=== PATIENT | male | born 1990 | race Two or more races ===

== ENCOUNTER 2018-05-28 22:34 | Emergency (ER) | payer SELFPAY ==
[~2018-05-28] VITALS: Ht 160 cm; Wt 71.2 kg
[2018-05-28] MEDS ORDERED: ACETAMINOPHEN ES 500 MG TABLET ONE (23:28)
[2018-05-28] MEDS ORDERED: ACETAMINOPHEN 325 MG TABLET PO ONE (23:30)
[2018-05-28 23:40] VITALS: BP 138/77
== END 2018-05-29 00:51 | disposition home or self-care (01) ==
LOC: ER 22:42
DX: M25.552 Pain in left hip (principal)
CPT/HCPCS: 73502